=== PATIENT | female | born 1990 | race African-American/Black ===

== ENCOUNTER 2016-10-24 11:10 | Emergency (ER) | payer MEDICAID, OTHER ==
[~2016-10-24] VITALS: Ht 160 cm; Wt 66.0 kg
[2016-10-24 11:25] VITALS: BP 104/74
== END 2016-10-24 13:14 | disposition home or self-care (01) ==
LOC: ER 13:05
DX: S01.01XA Laceration without foreign body of scalp, initial encounter (principal); X58.XXXA Exposure to other specified factors, initial encounter; Y93.89 Activity, other specified; Y92.9 Unspecified place or not applicable
CPT/HCPCS: 99283

== ENCOUNTER 2022-03-24 18:03 | Emergency (ER) | payer OTHER ==
[~2022-03-24] VITALS: Ht 162.6 cm; Wt 100.0 kg
[2022-03-24] MEDS ORDERED: HYDR12.54 PO (18:10)
[2022-03-24] MEDS ORDERED: ONDANSETRON 4MG ODT PO ONE (21:00)
[2022-03-24] MEDS ORDERED: ACETAMINOPHEN 325MG TABLET PO PRN (21:00)
[2022-03-24 23:03] LABS: BASOPHILS % 0.4 % (0.0-2.0); EOSINOPHILS % 3.2 % (0.0-5.0); HEMATOCRIT. 38.3 % (36.0-48.0); HEMOGLOBIN. 12.6 g/dL (12.0-16.0); LYMPHOCYTES % 38.4 % (20.0-50.0); MEAN CORPUSCULAR HEMOGLOBIN 28.2 pg (28.0-32.0); MEAN CORPUSCULAR VOLUME 85.9 fL (81.0-99.0); MEAN PLATELET VOLUME 9.5 fl (7.4-10.4); MONOCYTES % 7.9 % (2.0-8.0); NEUTROPHILS % 50.1 % (40.0-76.0); PLATELET 156 x1000/uL (130-400); RED BLOOD CELL COUNT 4.46 mill/uL (4.2-5.4); RED CELL DISTRIBUTION WIDTH 14.7 % (11.6-14.6)
[2022-03-24 23:10] LABS: CHLORIDE 108 mEq/L (98-107)
[2022-03-24 23:19] LABS: B-HCG QUANTITATIVE 890 mIU/mL (<3)
[2022-03-24 23:57] LABS: CLARITY URINE CLEAR (CLEAR); COLOR URINE YELLOW (YELLOW); KETONES URINE TRACE (NEGATIVE); LEUKOCYTE ESTERASE URINE TRACE (NEGATIVE); NITRITE URINE NEGATIVE (NEGATIVE); OCCULT BLOOD URINE NEGATIVE (NEGATIVE); PH URINE 7.5 (4.5-8.0); PROTEIN URINE NEGATIVE (NEGATIVE)
[2022-03-25] MEDS ORDERED: RHO(D) IMMUNE GLOBULIN 300 MCG/SYR IM ONE (00:45)
[2022-03-25] MEDS ORDERED: CEPH250C2 MT (00:51)
[2022-03-25] MEDS ORDERED: PNV1TABL50 MT (00:51)
[2022-03-25 02:45] VITALS: BP 145/85
== END 2022-03-25 02:58 | disposition home or self-care (01) ==
LOC: ER 18:03
DX: O26.891 Other specified pregnancy related conditions, first trimester (principal); O20.0 Threatened abortion; R10.9 Unspecified abdominal pain; I10 Essential (primary) hypertension; R82.71 Bacteriuria; Z3A.01 Less than 8 weeks gestation of pregnancy
CPT/HCPCS: 36415; 76830; 76856; 80053; 81003; 81025; 84702; 85025; 86850; 86900; 86901; 90384; 96372; 99285; Q0162; J2791